=== PATIENT | female | born 1975 | race Caucasian/White ===

== ENCOUNTER 2016-07-15 12:30 | Emergency (ER) | payer OTHER | END 2016-07-15 14:24 | disposition home or self-care (01) | LOC: ER1 12:30 | DX: G40.909 Epilepsy, unspecified, not intractable, without status epilepticus (principal); Z88.2 Allergy status to sulfonamides | CPT/HCPCS: 81001; 82962; 84703; 99284; J7030 ==

== ENCOUNTER 2016-07-15 20:31 | Emergency (ER) | payer OTHER ==
[2016-07-15 21:53] LABS: RED BLOOD COUNT 4.04 M/UL (4.00-5.10); WHITE BLOOD COUNT 4.3 K/UL (4.5-11.0)
[2016-07-15 22:14] LABS: BUN/CREATININE RATIO 26 (0-10)
== END 2016-07-16 10:40 ==
LOC: ER1 20:31
PROVIDERS: Emergency Medicine
DX: G40.901 Epilepsy, unspecified, not intractable, with status epilepticus (principal); Z91.14 Patient's other noncompliance with medication regimen; Z88.2 Allergy status to sulfonamides
CPT/HCPCS: 36415; 70450; 80053; 80307; 81001; 82550; 82962; 84484; 85025; 87086; 93005; 96365; 99285; G0480; J1953; J7030